=== PATIENT | female | born 1955 | race Caucasian/White ===

== ENCOUNTER → 2022-04-26 13:36 | Outpatient (REF) | payer MEDICARE, SELFPAY ==
--- NOTE | 2022-04-26 13:41 | CA_ITS ---
Transthoracic Echocardiogram Patient (Last, First, Middle): Patrica George, Gender: Female Date of : 1955 Age: 67 Procedure Date: 04/26/2022 Procedure Type: Transthoracic Echocardiogram Location: OP Height: 167.64 cm Weight: 74.84 kg BSA: 1.84 m2 Heart Rate: 85 bpm BP: 150 / 80 mmHg Radio Communications Mechanician: STEVEN Referring MD: Rochelle VALLES Symptoms: ATYPICAL CHEST PAIN Study Quality: Adequate ECG Rhythm: Sinus Conclusions: - The left ventricular systolic function is normal. The calculated ejection fraction is 57% by biplane method. - No obvious valvular pathology seen on this study. Findings Left Ventricle Normal left ventricular cavity size. There is normal left ventricular wall thickness. The left ventricular systolic function is normal. The calculated ejection fraction is 57% by biplane method. There is no evidence of regional wall motion abnormalities. Diastolic function is normal for age. Right Ventricle Normal right ventricular cavity size and systolic function. Atria Both atria are normal in size. Aortic Valve There is a normal trileaflet aortic valve. There is no aortic valve stenosis. There is no aortic valve regurgitation. Mitral Valve The mitral valve appears normal. There is no mitral valve regurgitation. There is no mitral valve stenosis. Pulmonic Valve The pulmonic valve is likely normal. Tricuspid Valve There is no tricuspid valve regurgitation. Tricuspid regurgitation envelope is inadequate for calculation of right ventricular systolic pressure. Great Vessels The asc aorta is normal in size. Venous The inferior vena cava is normal in size and collapses greater than 50% with inspiration. Pericardium/Pleural There is no evidence of pericardial effusion. Prior Study Comparison No significant change compared to prior study dated: 10/15/2012. Recommendations, Care & Conclusions No obvious valvular pathology seen on this study. Measurements 2D Linear Measurements IVSd: 0.81 0.6-0.9/0.6-1.0 cm LVIDd: 4.40 3.9-5.3/4.2-5.9 cm LVIDd Index: 2.39 2.4-3.2/2.2-3.1 cm/m2 LVIDs: 2.93 2.0-3.6 cm LVPWd: 0.78 0.7-1.1 cm LA Diam: 3.30 2.7-3.8/3.0-4.0 cm LAIDs Index: 1.79 1.5-2.3 cm/m2 LV Mass: 134.14 67-162/88-224 g LV Mass Index: 72.90 43-95/49-115 g/m2 LVOT Diam: 1.90 3.0+(-)1.3 cm 2D Systolic Function EF 4C: 53.70 >55% EF 2C: 60.20 >55% EF BiP: 57.00 >55% Mitral Valve MV Pk E: 0.70 MV PK A: 0.98 MV Decel Time: 231.00 E/A: 0.70 E'Lateral: 9.03 E'Medial: 6.42 E/E' Med: 11.00 E/E' Lat: 7.80 PHT: 68.00 MVA PHT: 3.24 Decel Towner: 3.04 Aortic Valve AoV Pk Brad: 1.13 AoV Mn Brad: 0.80 AoV VTI: 0.22 AoV Pk Grad: 5.00 Aov Mn Grad: 3.00 GEORGIE Cont.VTI: 2.24 LVOT LVOT Pk Brad: 0.91 LVOT Mn Brad: 0.63 LVOT VTI: 0.17 LVOT Pk Grad: 3.00 LVOT Mn Grad: 2.00 LVOT Diam: 1.90 LVOT Area: 2.84 Diastolic Function MV Pk E: 0.70 MV Pk A: 0.98 E/A: 0.70 E'Medial: 6.42 E/E' Med: 11.00 E' Laterial: 9.03 E/E' Lat: 7.80 Right Ventricle TAPSE (mm): 23.50 TVS' Brad: 9.68 Tricuspid Valve RA Press: 3.00 Great Vessels Aorta Sinus of Valsalva: 3.20 2.0-3.5 cm Ao Asc: 3.30 2.1-3.4 cm Pulmonary Valve PV Pk Brad: 0.92 Peak PV Grad: 3.00 Updated in Other Vendor System with Status of Final Rigoberto Maldonado MD electronically signed on 04/26/2022 4:57:06 PM with status of Final
== END ==
LOC: HO.CARD 13:36
PROVIDERS: Visit Provider Physician Assistant
DX: R07.89 Other chest pain (principal)
CPT/HCPCS: 93306

== ENCOUNTER 2023-01-07 11:47 | Outpatient (REF) | payer MEDICARE, SELFPAY ==
[2023-01-07 17:50] LABS: MANUAL DIFF FLAG NO
[2023-01-07 18:10] LABS: Alanine Aminotransferase 32 U/L (0-31); Albumin Level 4.3 g/dL (3.5-5.0); Alkaline Phosphatase 73 U/L (39-117); Anion Gap 16 (12-20); Aspartate Amino Transferase 44 U/L (5-31); Bilirubin Total 0.7 mg/dL (0.0-1.0); Blood Urea Nitrogen 10 mg/dL (9-16); Calcium 10.5 mg/dL (8.4-10.2); Carbon Dioxide 25 mmol/L (22-29); Chloride 103 mmol/L (96-108); Estimated Glomerular Filt Rate > 60; Glucose Random 87 mg/dL (60-115); Potassium 4.5 mmol/L (3.3-5.1); Sodium 139 mmol/L (135-145); Total Protein 7.9 g/dL (6.5-8.0)
[2023-01-07 18:12] LABS: Estimated Average Glucose 94 mg/dL; Hemoglobin A1c % 4.9 %
[2023-01-07 18:14] LABS: Basophils Percent Auto 0.7 % (0-2); Eosinophils Absolute Auto 0.1 X10*3/uL (0.0-0.4); Eosinophils Percent Auto 1.5 % (0-4); Hematocrit 39.9 % (37.0-47.0); Hemoglobin 13.6 g/dl (12.0-16.0); Imm Gran Abs Auto 0.06 X10*3/uL (0.00-0.03); Lymphocytes Absolute Auto 1.4 X10*3/uL (1.2-4.9); Lymphocytes Percent Auto 24.6 % (20-40); Mean Corpuscular HGB Conc 34.1 g/dl (31.0-35.0); Mean Corpuscular Hemoglobin 34.4 pg (27.0-33.0); Mean Platelet Volume 10.2 fL (9.4-12.3); Monocytes Absolute Auto 0.5 X10*3/uL (0.1-1.2); Neutrophils Absolute Auto 3.7 x10*3/uL (2.0-8.3); Neutrophils Percent Auto 63.2 % (45-73); Platelet Count 291 X10*3/uL (160-400); Red Blood Count 3.95 X10*6/uL (4.20-5.50); Red Cell Distribution Width 11.8 % (11.0-16.0); White Blood Count 5.8 X10*3/uL (4.8-10.8)
== END 2023-01-07 11:48 | disposition home or self-care (01) ==
LOC: HO.MANLDS 11:47
PROVIDERS: Visit Provider Physician Assistant
DX: I10 Essential (primary) hypertension (principal); R73.01 Impaired fasting glucose
CPT/HCPCS: 36415; 80053; 83036; 85025

== ENCOUNTER 2023-02-04 11:03 | Outpatient (REF) | payer MEDICARE, SELFPAY ==
[2023-02-04 17:05] LABS: Cholesterol 279 mg/dL; HDL Cholesterol 81 mg/dL; Iron 125 mcg/dL (30-160); LDL Cholesterol Calculated 185 mg/dl; Percent Iron Saturation 38 % (15-50); Total Iron Binding Capacity 332 mcg/dL (228-428); Triglycerides 69 mg/dL; Unsaturated Iron Binding 207 ug/dL
[2023-02-04 17:08] LABS: Ferritin 221 ng/mL (10-250); Vitamin D 25-OH Total 24.4 ng/mL (>30)
[2023-02-04 17:57] LABS: Folate 8.5 ng/mL (> or = 4.0); Vitamin B12 284 pg/mL (200-900)
[2023-02-06 16:58] LABS: Homocysteine 19.7 umol/L (<10.4)
== END 2023-02-04 11:04 | disposition home or self-care (01) ==
LOC: HO.LAB 11:03
PROVIDERS: PCP Internal Medicine; Visit Provider Physician Assistant
DX: D53.9 Nutritional anemia, unspecified (principal); E55.9 Vitamin D deficiency, unspecified; E78.00 Pure hypercholesterolemia, unspecified
CPT/HCPCS: 36415; 80061; 82306; 82607; 82728; 82746; 83090; 83540

== ENCOUNTER 2023-03-11 11:03 | Outpatient (REF) | payer MEDICARE, SELFPAY ==
--- NOTE | ~2023-03-11 | MM_ITS ---
EXAMINATION: MM SCREENING DIGITAL BREAST TOMOSYNTHESIS, BILATERAL CLINICAL INFORMATION: Screening. Asymptomatic. COMPARISON: Mammography: This study is compared with prior exams dating back to 2015. TECHNIQUE: Digital breast tomosynthesis is performed in both the craniocaudal and mediolateral oblique views along with computer-aided detection (CAD). Synthesized 2D images are generated from the tomosynthesis. FINDINGS: There are scattered areas of fibroglandular density (ACR BI-RADS breast composition Category b). There are no significant masses, abnormal calcifications, or other abnormalities. MM/MM tomosynthesis screening BI IMPRESSION: No mammographic evidence of malignancy. ASSESSMENT: BI-RADS BI-RADS 1 - Negative RECOMMENDATION: Routine annual mammography screening. 1 year F/U This examination should not preclude the clinical evaluation of a suspicious palpable abnormality. This patient's information was entered into a reminder system with a target due date for their next mammogram.
== END 2023-03-11 11:04 | disposition home or self-care (01) ==
LOC: HO.MAMMO 11:03
PROVIDERS: PCP Internal Medicine; Visit Provider Internal Medicine
DX: Z12.31 Encounter for screening mammogram for malignant neoplasm of breast (principal)
CPT/HCPCS: 77063; 77067

== ENCOUNTER → 2023-03-11 13:15 | Outpatient (BNV) | payer MEDICARE, SELFPAY | PROVIDERS: PCP Internal Medicine; Visit Provider Radiology Diagnostic Radiology | DX: Z12.31 Encounter for screening mammogram for malignant neoplasm of breast (principal) | CPT/HCPCS: 77063; 77067 ==

== ENCOUNTER 2023-03-12 15:55 | Outpatient (REF) | payer MEDICARE, SELFPAY ==
[2023-03-12 17:26] LABS: Appearance Urine Clear; Color Urine Yellow; Glucose Urine UA Negative (Negative); Leukocyte Esterase Urine Small (1+) (Negative); Nitrite Urine Positive (Negative); Specific Gravity - Urine <= 1.005 (1.005-1.025); UMIC TRIGGER UACC YES; Urine Blood Negative (Negative); Urine Ketones Negative (Negative); Urine Protein Negative (Neg-Trace)
[2023-03-12 17:44] LABS: Bacteria Urine 4+ (None Seen); Hyaline Casts Urine 0-2 /LPF (0-2); RBC Urine 0-2 /HPF (0-2); Squamous Epithelial Cell Urine 0-2 /HPF (0-2); UACC Culture Trigger YES; WBC Urine 0-5 /HPF (0-5)
[2023-03-12 18:05] LABS: Alanine Aminotransferase 28 U/L (0-31); Albumin Level 4.5 g/dL (3.5-5.0); Alkaline Phosphatase 55 U/L (39-117); Anion Gap 14 (12-20); Aspartate Amino Transferase 27 U/L (5-31); Bilirubin Total 0.5 mg/dL (0.0-1.0); Blood Urea Nitrogen 8 mg/dL (9-16); Carbon Dioxide 25 mmol/L (22-29); Chloride 106 mmol/L (96-108); Estimated Glomerular Filt Rate > 60; Glucose Random 84 mg/dL (60-115); Potassium 3.9 mmol/L (3.3-5.1); Sodium 141 mmol/L (135-145)
[2023-03-12 18:11] LABS: Vitamin D 25-OH Total 30.2 ng/mL (>30)
== END 2023-03-12 15:56 | disposition home or self-care (01) ==
LOC: HO.MANLDS 15:55
PROVIDERS: Visit Provider Physician Assistant
DX: E78.2 Mixed hyperlipidemia (principal); E55.9 Vitamin D deficiency, unspecified; E87.1 Hypo-osmolality and hyponatremia; N10 Acute pyelonephritis
CPT/HCPCS: 36415; 80053; 81001; 82306; 87086; 87088; 87186

== ENCOUNTER 2023-12-04 16:07 | Day surgery (SDC) | payer MEDICARE, SELFPAY ==
[2023-12-04] VITALS (8 sets, daily range): BP systolic 124–167; BP diastolic 65–107; PULSE 75–116; RESP 11–20; TEMP 36.1–36.9; O2SAT 96–99; BMI 22.6
--- NOTE | 2023-12-04 16:48 | ED_ITS ---
HPI - General Adult General Chief complaint: General Medical Stated complaint: possible esophageal obstruction Time Seen by Provider: 12/04/23 16:10 Source: patient Mode of arrival: ambulatory Limitations: no limitations History of Present Illness ED Provider: Dr. Fabienne Alfaro HPI narrative: Patient comes to the emergency room complaining of a foreign body stuck in the esophagus. Patient states that she has had multiple episodes of this happening. Today, patient was in [facility] and seems I got caught in her esophagus. Patient states that now every time that she tries to drink something, she vomits immediately. Patient states that she was supposed to follow-up with gastroenterology for a dilation and an endoscopy but she never got to it. Patient denies fever or chills, no abdominal pain, no diarrhea. Patient states that her last p.o. intake was approximately 2-1/2 hours ago Related Data Home Medications ?Medication ?Instructions ?Recorded ?Confirmed amlodipine PO DAILY HTN 12/04/23 clonazepam PO PRN Anxiety 12/04/23 zolpidem 10 mg tablet 10 mg PO BEDTIME PRN Anxiety 12/04/23 12/04/23 Previous Rx's ?Medication ?Instructions ?Recorded omeprazole 20 mg capsule,delayed 20 mg PO BID 90 days #180 caps 12/04/23 release Allergies Allergy/AdvReac Type Severity Reaction Status Date / Time ciprofloxacin [From CIPRO] Allergy Severe FACIAL AND Verified 12/04/23 16:20 THROAT SWELLING, ITCHY Sulfa (Sulfonamide Allergy Itching Verified 12/04/23 16:21 Antibiotics) lisinopril AdvReac Severe renal Verified 12/04/23 19:00 failure Review of Systems 2 Review of Systems: Constitutional : No Weight loss, No Fever, No Chills, No Night Sweats, No Fatigue, No Malaise ENT/Mouth : No Hearing loss, No Ear Pain, No Nasal Congestion, No Sinus Pain, No Hoarseness, No sore throat, No Rhinorrhea, No Swallowing Difficulty Eyes: No Eye Pain, No Swelling, No Redness, No Foreign Body, No Discharge, No Vision Changes Cardiovascular : No Chest Pain, No SOB, No Dyspnea on Exertion, No Orthopnea, No Edema, No Palpitations Respiratory : No Cough, No Sputum, No Wheezing, No Smoke Exposure, No Dyspnea Gastrointestinal : Nausea and vomiting, foreign body sensation in the esophagus, no diarrhea Genitourinary : no irregular bleeding, No Dysuria, No Urinary Frequency, No Hematuria, No Urinary Incontinence, No Urgency, No Flank Pain, No Urinary Flow Changes, No Hesitancy Musculoskeletal : No joint pain, No Myalgias, No Joint Swelling Skin : No Skin Lesions, No rash Neuro : No Weakness, No Numbness, No Paresthesias, No Loss of Consciousness, No Dizziness, No Headache Psych : No Anxiety/Panic, No Depression, No SI/HI/AH/VH, No Social Issues, Heme/Lymph: No Bruising, No Bleeding,No Lymphadenopathy Endocrine : No Polyuria, No Polydipsia, No Temperature Intolerance [facility] Past Medical History Medical History (Updated 12/06/23 @ 06:00 by Vandana Cunha) Hypertension Physical Exam ED Vital Signs: Vital Signs - 24 hr 12/04/23 16:17 Temperature 97 F Pulse Rate 115 H Respiratory Rate 20 Blood Pressure 167/107 H Pulse Oximetry 99 Oxygen Delivery Method Room Air BMI result Body Mass Index 22.6 Const Other: Appearance: Alert. Oriented X3. Looks uncomfortable Eyes: Pupils equal, round and reactive to light. ENT: Pharynx normal. Neck: Normal inspection. Neck supple. No lymph nodes noted. No crepitus CVS: Normal heart rate and rhythm. Pulses normal. Normal S1 and S2 Respiratory: No respiratory distress. Breath sounds normal. No Wheezing. No rales Abdomen: Soft and nontender. No rigidity. No distention. Actively Vomiting Skin: Skin warm and dry. Normal skin color. Normal skin turgor. Extremities: No lower extremity edema. No Lacerations. No Rash Neuro: Oriented X 3. No motor deficit. No sensory deficit. Moving all extremities. No slurred speech. CN 2 through 12 grossly intact Psych: calm, cooperative, normal affect Course Course Course Narrative: -patient p.o. challenged with fluids. Medications Administered Discontinued Medications Generic Name Dose Route Start Last Admin Trade Name Freq PRN Reason Stop Dose Admin Glucagon 1 mg 12/04/23 17:02 12/04/23 17:15 Glucagon Hcl 1 Mg Vial IM 12/04/23 17:03 1 mg ONCE ONE Administration Sodium Chloride 1,000 mls @ 999 mls/hr 12/04/23 17:21 12/04/23 18:40 Ns IVCONT 12/04/23 18:21 Infused .Q1H1M ONE Infusion Nitroglycerin 0.4 mg 12/04/23 17:02 12/04/23 17:09 Nitroglycerin 0.4 Mg Tab.Subl SUBLINGUAL 12/04/23 17:03 0.4 mg ONCE ONE Administration Ondansetron HCl 4 mg 12/04/23 17:21 12/04/23 17:37 Ondansetron Hcl 4 Mg/2 Ml Vial IVPUSH 12/04/23 17:22 4 mg ONCE ONE Administration Medical Decision Making Medical Decision Making [facility] Narrative: Patient states that she tried drinking a small sip of water here in the ED, patient vomited immediately. -then, patient was given IM glucagon and sublingual nitroglycerin. Patient had no significant effect with it. Patient continues vomiting. -I discussed the patient with Dr. Hall, patient will be going to endoscopy suite soon. -anesthesiologist at bedside, aware the patient ate approximately 2.5 hours ago -my interpretation of labs: White blood cell count, hematology at baseline. Chemistry does not show any acute abnormality. Patient did not provide a urine sample. Differential Diagnosis Differential Diagnoses: The differential diagnosis associated with the presentation includes (Retained Food bolus in esophagus, gastroenteritis, gastritis) Admission/Observation Consideration of admission/observation: Escalation of care including admission/observation considered Consult Healthcare Provider Management of the patient was discussed with: [facility] Lab Data [facility] Lab Attestation statement: I reviewed the patient's lab results. 12/04/23 17:40 12/04/23 17:40 Labs: Lab Results 12/04/23 12/04/23 Range/Units 17:40 18:47 WBC 8.2 (4.8-10.8) X10*3/uL RBC 4.01 L (4.20-5.50) X10*6/uL Hgb 12.6 (12.0-16.0) g/dl Hct 36.2 L (37.0-47.0) % MCV 90.3 (80.0-98.0) fL MCH 31.4 (27.0-33.0) pg MCHC 34.8 (31.0-35.0) g/dl RDW 12.1 (11.0-16.0) % Plt Count 226 (160-400) X10*3/uL MPV 10.1 (9.4-12.3) fL Immature Gran % (Auto) 0.2 (0.0-0.4) % Neut % (Auto) 81.4 H (45-73) % Lymph % (Auto) 13.2 L (20-40) % [place] % (Auto) 4.5 (2-11) % Eos % (Auto) 0.1 (0-4) % Baso % (Auto) 0.6 (0-2) % Lymph # (Auto) 1.1 L (1.2-4.9) X10*3/uL [place] # (Auto) 0.4 (0.1-1.2) X10*3/uL Eos # (Auto) 0.0 (0.0-0.4) X10*3/uL Baso # (Auto) 0.1 (0.0-0.2) X10*3/uL Abs Immat Gran (auto) 0.02 (0.00-0.03) X10*3/uL Absolute Neuts (auto) 6.6 (2.0-8.3) x10*3/uL Absolute Nucleated RBC 0.000 (0.0-0.012) X10*3/uL Nucleated RBC % (auto) 0.0 (0.0-0.2) /100WBC Sodium 141 (135-145) mmol/L Potassium 3.4 (3.3-5.1) mmol/L Chloride 105 (96-108) mmol/L Carbon Dioxide 23 (22-29) mmol/L Anion Gap 16 (12-20) BUN 13 (9-16) mg/dL Creatinine 0.75 (0.5-1.4) mg/dL Estim Creat Clear Calc 66.2 Estimated GFR > 60 Random Glucose 158 H (60-115) mg/dL Calcium 10.0 D (8.4-10.2) mg/dL Magnesium 2.0 (1.6-2.6) mg/dL Total Bilirubin 0.4 (0.0-1.0) mg/dL Direct Bilirubin 0.1 (0.0-0.5) mg/dL AST 30 (5-31) U/L ALT 38 H (0-31) U/L Alkaline Phosphatase 61 (39-117) U/L Total Protein 7.9 (6.5-8.0) g/dL Albumin 4.5 (3.5-5.0) g/dL Lipase 37 (8-78) U/L Urine Color Yellow Urine Appearance Clear Urine pH 7.5 (5.0-9.0) Ur Specific [place] 1.010 (1.005-1.025) Urine Protein Negative (Neg-Trace) mg/dL Urine Glucose (UA) 100 H (Negative) mg/dL Urine Ketones 15 (Negative) mg/dL Urine Blood Negative (Negative) Urine Nitrite Negative (Negative) Ur Leukocyte Esterase Negative (Negative) Discharge Plan Discharge Clinical Impression: Dysphagia Patient Disposition: Home, Self-Care Discharge Date/Time: 12/06/23 06:00
[2023-12-04] MEDS: Nitroglycerin 0.4 MG TAB.SUBL SUBLINGUAL (17:09)
[2023-12-04] MEDS: glucagon HCL 1 MG VIAL IM (17:15)
[2023-12-04] MEDS: 0.9 % Sodium Chloride 1,000 ML 999 ML IVCONT (17:37)
[2023-12-04] MEDS: ondansetron HCL 4 MG/2 ML VIAL IVPUSH (17:37)
[2023-12-04 17:44] LABS: MANUAL DIFF FLAG NO
--- NOTE | 2023-12-04 18:00 | PC.NURSE ---
pt alert and oriented, very anxious. reports that she has had food caught in her esophagus several times before but never for this long or this bad. IM glucagon given and sublingual nitro without relief. GI consult ordered. pt on monitoring manager. 20g IV to left AC
[2023-12-04 18:01] LABS: Alanine Aminotransferase 38 U/L (0-31); Albumin Level 4.5 g/dL (3.5-5.0); Alkaline Phosphatase 61 U/L (39-117); Anion Gap 16 (12-20); Aspartate Amino Transferase 30 U/L (5-31); Bilirubin Direct 0.1 mg/dL (0.0-0.5); Bilirubin Total 0.4 mg/dL (0.0-1.0); Blood Urea Nitrogen 13 mg/dL (9-16); Carbon Dioxide 23 mmol/L (22-29); Chloride 105 mmol/L (96-108); Creatinine Clr Calc Pharmacy 66.2; Estimated Glomerular Filt Rate > 60; Glucose Random 158 mg/dL (60-115); Lipase 37 U/L (8-78); Potassium 3.4 mmol/L (3.3-5.1); Sodium 141 mmol/L (135-145); Total Protein 7.9 g/dL (6.5-8.0)
[2023-12-04 18:08] LABS: Basophils Absolute Auto 0.1 X10*3/uL (0.0-0.2); Basophils Percent Auto 0.6 % (0-2); Eosinophils Percent Auto 0.1 % (0-4); Hematocrit 36.2 % (37.0-47.0); Hemoglobin 12.6 g/dl (12.0-16.0); Imm Gran Abs Auto 0.02 X10*3/uL (0.00-0.03); Imm Gran Pct Auto 0.2 % (0.0-0.4); Lymphocytes Absolute Auto 1.1 X10*3/uL (1.2-4.9); Lymphocytes Percent Auto 13.2 % (20-40); Mean Corpuscular HGB Conc 34.8 g/dl (31.0-35.0); Mean Corpuscular Hemoglobin 31.4 pg (27.0-33.0); Mean Corpuscular Volume 90.3 fL (80.0-98.0); Mean Platelet Volume 10.1 fL (9.4-12.3); Monocytes Absolute Auto 0.4 X10*3/uL (0.1-1.2); Monocytes Percent Auto 4.5 % (2-11); Neutrophils Absolute Auto 6.6 x10*3/uL (2.0-8.3); Neutrophils Percent Auto 81.4 % (45-73); Platelet Count 226 X10*3/uL (160-400); Red Blood Count 4.01 X10*6/uL (4.20-5.50); Red Cell Distribution Width 12.1 % (11.0-16.0); White Blood Count 8.2 X10*3/uL (4.8-10.8)
--- NOTE | 2023-12-04 18:11 | ECG_ITS ---
Test Reason : POST SURGERY Blood Pressure : / mmHG Vent. Rate : 104 BPM Atrial Rate : 104 BPM P-R Int : 180 ms QRS Dur : 068 ms QT Int : 344 ms P-R-T Axes : 005 -16 -22 degrees QTc Int : 452 ms Sinus tachycardia Inferior infarct , age undetermined Abnormal ECG When compared with ECG of 21-SEP-2015 22:11, Incomplete right bundle branch block is no longer Present Inferior infarct is now Present Inverted T waves have replaced nonspecific T wave abnormality in Inferior leads Referred By: Fabienne Alfaro Electronically Signed By:Luis Alberto Gamble
[2023-12-04 18:53] LABS: Appearance Urine Clear; Color Urine Yellow; Glucose Urine UA 100 mg/dL (Negative); Leukocyte Esterase Urine Negative (Negative); Nitrite Urine Negative (Negative); PH 7.5 (5.0-9.0); Urine Blood Negative (Negative); Urine Ketones 15 mg/dL (Negative); Urine Protein Negative (Neg-Trace)
--- NOTE | 2023-12-04 18:57 | P.CNGI_ITS ---
History of Present Illness Data of Consult Service Date: 12/04/23 Requesting physician: Fabienne Alfaro Primary Care Provider: Ranjan Beatty MD [facility] Reason for consult: Food obstruction This is a 68-year-old female with past medical history of hypertension who presented to the hospital for inability to tolerate p.o. intake and sensation of food stuck in her esophagus. Patient reports that around she was having pastrami for lunch around 2.45pm when she felt a piece getting stuck in her esophagus. Since then, she has not been able to tolerate any oral intake including fluids. Food immediately comes back up. Reports previous similar episodes in the past. Is supposed to see Gastroenterology at for endoscopic evaluation but has not gotten around to it . In the emergency room, vitals were noted to be grossly normal. Blood work with normal platelets and kidney function. Review of Systems 2 Review of Systems: Yes all other systems are reviewed and are negative [facility] Past Medical History Medical History (Updated 12/04/23 @ 19:01 by Shilpi Hall MD) Hypertension Social History Social History Smoked in Last 30 Days: No Use of substances other than those prescribed or required for medical reasons: No Are you DNR?: No Advance Directives: No Advance Directives Information Provided: No Meds Allergies Allergy/AdvReac Type Severity Reaction Status Date / Time ciprofloxacin [From CIPRO] Allergy Severe FACIAL AND Verified 12/04/23 16:20 THROAT SWELLING, ITCHY Sulfa (Sulfonamide Allergy Itching Verified 12/04/23 16:21 Antibiotics) lisinopril AdvReac Severe renal Verified 12/04/23 19:00 failure Home Medications ?Medication ?Instructions ?Recorded ?Confirmed ?Last Taken ?Type amlodipine PO DAILY HTN 12/04/23 12/04/23 History clonazepam PO PRN Anxiety 12/04/23 12/04/23 16:00 History 2 mg zolpidem 10 mg tablet 10 mg PO BEDTIME PRN Anxiety 12/04/23 12/04/23 12/03/23 History Physical Exam 2 Vital Signs: Vital Signs: Last Vital Signs Temp 98.4 F 12/04/23 18:00 Pulse 96 12/04/23 18:00 Resp 11 L 12/04/23 18:00 BP 156/80 H 12/04/23 18:00 Pulse Ox 97 12/04/23 18:00 O2 Del Method Room Air 12/04/23 18:00 BMI result Body Mass Index 22.6 No apparent distress Nonicteric Abdomen soft, nondistended Alert and oriented x3, Results Labs 12/04/23 17:40 12/04/23 17:40 Labs: Short CBC 12/04/23 Range/Units 17:40 WBC 8.2 (4.8-10.8) X10*3/uL Hgb 12.6 (12.0-16.0) g/dl Hct 36.2 L (37.0-47.0) % Plt Count 226 (160-400) X10*3/uL BMP 12/04/23 17:40 Sodium 141 Potassium 3.4 Chloride 105 Carbon Dioxide 23 BUN 13 Creatinine 0.75 Calcium 10.0 D Liver Function 12/04/23 Range/Units 17:40 Total Bilirubin 0.4 (0.0-1.0) mg/dL Direct Bilirubin 0.1 (0.0-0.5) mg/dL AST 30 (5-31) U/L ALT 38 H (0-31) U/L Alkaline Phosphatase 61 (39-117) U/L Albumin 4.5 (3.5-5.0) g/dL Urine 12/04/23 Range/Units 18:47 Urine Color Yellow Urine Appearance Clear Urine pH 7.5 (5.0-9.0) Ur Specific [place] 1.010 (1.005-1.025) Urine Protein Negative (Neg-Trace) mg/dL Urine Glucose (UA) 100 H (Negative) mg/dL Assessment and Plan (1) Dysphagia: Status: Acute (2) Esophageal obstruction due to food impaction: Status: Acute Plan Presentation consistent with food obstruction. Differentials include dysmotility, esophageal stricture, EoE. Plan: -please keep the patient strict NPO -urgent endoscopy +/- dilation to be scheduled for today - indications, risks and benefits reviewed with the pt who is agreeable to proceed. -further recommendations to follow in the procedure note. Procedures Date of Service Date of Service: 12/04/23
--- NOTE | 2023-12-04 19:10 | P.CONAN_ITS ---
[facility] Active Problems Active Problems: All Active Problems Esophageal obstruction due to food impaction (Acute) Dysphagia (Acute) Past Medical History Medical History (Updated 12/04/23 @ 19:01 by Shilpi Hall MD) Hypertension Family History Family history of problems with anesthesia: No Surgical History History of Problems with Anesthesia: No Social History Social History Smoked in Last 30 Days: No Use of substances other than those prescribed or required for medical reasons: No Are you DNR?: No Advance Directives: No Advance Directives Information Provided: No Meds Allergies Allergy/AdvReac Type Severity Reaction Status Date / Time ciprofloxacin [From CIPRO] Allergy Severe FACIAL AND Verified 12/04/23 16:20 THROAT SWELLING, ITCHY Sulfa (Sulfonamide Allergy Itching Verified 12/04/23 16:21 Antibiotics) lisinopril AdvReac Severe renal Verified 12/04/23 19:00 failure Home Medications ?Medication ?Instructions ?Recorded ?Confirmed ?Last Taken ?Type clonazepam PO PRN Anxiety 12/04/23 12/04/23 History 1600 Exam Height,Weight and Vital Signs: Height 5 ft 6 in Weight 63.503 kg Last Vital Signs Temp 97.4 F 12/04/23 18:55 Pulse 93 12/04/23 18:55 Resp 18 12/04/23 18:55 BP 139/77 12/04/23 18:55 Pulse Ox 98 12/04/23 18:55 O2 Del Method Room Air 12/04/23 18:55 Pertinent Lab Results Pertinent Lab Results: Laboratory Tests 12/04/23 12/04/23 17:40 18:47 WBC 8.2 RBC 4.01 L Hgb 12.6 Hct 36.2 L MCV 90.3 MCH 31.4 MCHC 34.8 RDW 12.1 Plt Count 226 MPV 10.1 Immature Gran % (Auto) 0.2 Neut % (Auto) 81.4 H Lymph % (Auto) 13.2 L [place] % (Auto) 4.5 Eos % (Auto) 0.1 Baso % (Auto) 0.6 Lymph # (Auto) 1.1 L [place] # (Auto) 0.4 Eos # (Auto) 0.0 Baso # (Auto) 0.1 Abs Immat Gran (auto) 0.02 Absolute Neuts (auto) 6.6 Absolute Nucleated RBC 0.000 Nucleated RBC % (auto) 0.0 Sodium 141 Potassium 3.4 Chloride 105 Carbon Dioxide 23 Anion Gap 16 BUN 13 Creatinine 0.75 Estim Creat Clear Calc 66.2 Estimated GFR > 60 Random Glucose 158 H Calcium 10.0 D Magnesium 2.0 Total Bilirubin 0.4 Direct Bilirubin 0.1 AST 30 ALT 38 H Alkaline Phosphatase 61 Total Protein 7.9 Albumin 4.5 Lipase 37 Urine Color Yellow Urine Appearance Clear Urine pH 7.5 Ur Specific [place] 1.010 Urine Protein Negative Urine Glucose (UA) 100 H Urine Ketones 15 Urine Blood Negative Urine Nitrite Negative Ur Leukocyte Esterase Negative Airway Mallampati Class: II TM Dist: >3cm Neck ROM: Full Assessment and Plan Assessment Anesthesia Assessment: Anesthesia Plan Discussed and Chart Reviewed Final Anesthetic Review Family History of Problems with Anesthesia: No History of Problems with Anesthesia: No NPO: Yes ASA Class: II and Emergency Final Preanesthetic Review: No Changes in Pt Med Stat, Meds/Allgs Chart Reviewed, Consent Obtained/Reviewed and Anes Risks/Benef Reviewed Patient Risk: Intermediate Procedure Risk: Low Anesthetic Plan Anesthetic Plan: GA Disposition: Standard PACU
--- NOTE | 2023-12-04 19:17 | P.OP_ITS ---
Operative Note Operative Note Date of Service: 12/04/23 Narrative: Procedure: Esophagogastroduodenoscopy Endoscopist: Shilpi Hall MD Indication: Food impaction Anesthesia Provider: Dr Vadim Rome Anesthesia Type: MAC ?? EGD Procedure:?? The procedure, indications, preparation and potential complications were reviewed with the patient, who indicated understanding and gave written informed consent to proceed. A physical exam was performed. The patient was electively intubated for airway protection the anesthesiologist. The endoscope was introduced through the mouth, and advanced to the second part of duodenum. The mucosa was carefully examined on slow withdrawal of the endoscope. The patient tolerated the procedure well. There were no immediate complications.? ? EGD Findings:? * Esophagus:? Food was stuck just above GEJ due to Schatzki's ring. The scope was maneuvered around the food bolus and was able traverse through GE junction gently dilating the Schatzki's ring. The food however could not be pushed down. It was therefore removed from the esophagus using a Rescue Net. Grade D ulceration was noted from 35-38 cm where was food was impacted and therefore balloon dilation was not performed today. * Stomach:? Semi solid food was present in the fundus of the stomach and limited visualization. Remaining mucosa was normal in the stomach. * Duodenum:? Normal mucosa was noted in the whole of the examined duodenum. ? EGD Impressions:? * Food impaction * Obstructing Schatzki's ring * Food in stomach * Normal duodenum ?? Recommendations:?? * Start omeprazole 20 BID to be continued for at least 8 weeks and then decrease to 20mg once daily * Pt will be booked for repeat EGD in 8-10 weeks to document healing of esophagitis as well as to further break the Schatzki's ring * She was extensively counseled to cut up and chew the food thoroughly Above has been reviewed with the patient. Relevant educational hand outs were provided at discharge.
== END 2023-12-04 20:42 | disposition home or self-care (01) ==
LOC: HO.ED 16:32 → HO.SSS 18:44
PROVIDERS: Internal Medicine; Emergency Provider Emergency Medicine; PCP Internal Medicine; Visit Provider Student in an Organized Health Care Education/Training Program
PROC: 0DJ08ZZ Inspection of Upper Intestinal Tract, Via Natural or Artificial Opening Endoscopic (ICD-10-PCS; CPT 43235; principal; 2023-12-04 18:15)
DX: T18.128A Food in esophagus causing other injury, initial encounter (principal); W44.F3XA Food entering into or through a natural orifice, initial encounter; K22.2 Esophageal obstruction; K20.90 Esophagitis, unspecified without bleeding; I10 Essential (primary) hypertension; R11.10 Vomiting, unspecified
CPT/HCPCS: 43247; 36415; 80048; 80076; 81003; 83690; 83735; 85025; 93005; 96361; 96372; 96374; 99284; 99285; J1100; J1610; J2405; J2704; J3010

== ENCOUNTER → 2023-12-04 18:11 | Outpatient (BNV) | payer MEDICARE, SELFPAY | PROVIDERS: Emergency Provider Emergency Medicine; PCP Internal Medicine; Visit Provider Internal Medicine Cardiovascular Disease | DX: R00.0 Tachycardia, unspecified (principal); R94.31 Abnormal electrocardiogram [ECG] [EKG] | CPT/HCPCS: 93010 ==

== ENCOUNTER → 2023-12-04 18:41 | Outpatient (BNV) | payer MEDICARE, SELFPAY | PROVIDERS: Emergency Provider Emergency Medicine; PCP Internal Medicine; Visit Provider Internal Medicine | DX: R13.10 Dysphagia, unspecified (principal); T18.128A Food in esophagus causing other injury, initial encounter; W44.F3XA Food entering into or through a natural orifice, initial encounter; K22.2 Esophageal obstruction | CPT/HCPCS: 43247; 99221 ==